=== PATIENT | female | born 1945 | race Caucasian/White ===

== ENCOUNTER 2020-04-09 19:01 | Emergency (ER) | payer MEDICARE ==
[2020-04-09] MEDS ORDERED: Sodium Chloride 0.9% 1,000 ML ONE (19:32)
--- NOTE | 2020-04-09 19:53 | RAD ---
CHEST ONE VIEW: 04/09/20 HISTORY: Dyspnea. COMPARISON: None. FINDINGS: Moderate effusions. Heart size is enlarged. Bibasilar atelectasis. Small nodules right upper lobe may reflect granulomas. IMPRESSION: 1. Cardiomegaly with small to moderate layering pleural effusions. 2. Pulmonary hypertension. 3. Bibasilar atelectasis. 4. Moderate S-shaped scoliosis thoracolumbar junction. POS: HOME
[2020-04-09] MEDS ORDERED: Sodium Chloride 0.9% 100 ML ONE (20:35)
[2020-04-09] MEDS ORDERED: Cefepime 2 GM VIAL ONE (20:35)
[2020-04-09 20:53] LABS: ALT (SGPT) 28 U/L (8-55); AST (SGOT) 63 U/L (5-34); Albumin 1.9 g/dL (3.4-4.8); Alkaline Phosphatase 149 U/L (40-110); Anion Gap 17 mmol/L (10-20); BUN (Urea Nitrogen) 34 mg/dL (9.8-20.1); Bilirubin, Total 1.3 mg/dL (0.2-1.2); CK (CPK) 326 U/L (29-168); Calc. Creatinine Clearance 0 mL/min (70-130); Carbon Dioxide 21 mmol/L (23-31); Chloride 103 mmol/L (98-107); Glucose 71 mg/dL (83-110); Potassium 4.8 mmol/L (3.5-5.1); Protein, Total 4.9 g/dL (6.0-8.3); Sodium 136 mmol/L (136-145)
[2020-04-09 21:04] LABS: Hemoglobin 9.9 g/dL (12.0-16.0); Mean Corpuscular HGB CONC 29.6 g/dL (32.0-36.0); Mean Corpuscular Volume 87.8 fL (78.0-98.0); Platelet Count 165 thou/uL (130-400); RBC Distribution Width 15.7 % (11.5-14.5); Red Blood Cell (RBC) Count 3.81 mill/uL (4.20-5.40); White Blood Cell (WBC) Count 43.7 thou/uL (4.8-10.8)
[2020-04-09 21:15] LABS: CKMB 1.9 ng/mL (0-6.6)
[2020-04-09] MEDS ORDERED: Vancomycin 1.5 GRAM/300 ML BAG ONE (21:21)
[2020-04-09 21:34] LABS: Clarity Hazy (Clear); Leukocyte Negative (Negative); Nitrite Positive (Negative); Protein, Urine (Dipstick) 30 mg/dL (Neg-Trace); Specific Gravity, Urine 1.025 (1.005-1.030)
[2020-04-09 21:35] LABS: Bilirubin Moderate (Negative); Blood, Urine Negative (Negative); Glucose, Urine (Dipstick) Negative (Negative); Ketone, Urine Trace mg/dL (Negative)
[2020-04-09 21:36] LABS: RBC/HPF 0-3 HPF (0-3); WBC/HPF 0-3 HPF (0-3)
[2020-04-09 21:37] LABS: Bacteria/HPF 2+ HPF (None Seen)
--- NOTE | 2020-04-09 21:50 | CT ---
CT Abdomen Pelvis WO Con 04/09/2020 7:32 PM HISTORY: Diarrhea and abdominal pain. Weakness. Elevated creatinine. COMPARISON: None. Technique: Multiple contiguous axial CT images are obtained through the abdomen and pelvis without IV contrast. Coronal reformats are provided. FINDINGS: This examination is limited for the evaluation of solid organs and vascular structures due to the lac k of intravenous contrast. Lower Chest: Small bilateral pleural effusions and associated areas of consolidation are seen in each lung base probably attributable to passive atelectasis. Pneumonia in either lung base would be difficult to exclude. Liver: Diminished attenuation suggesting fatty infiltration. Gallbladder: Surgically absent. Pancreas: Grossly normal nonenhanced CT appearance. Spleen: Grossly normal nonenhanced CT appearance. Adrenals: Grossly normal nonenhanced CT appearance. Kidneys and ureters: A 1.9 cm exophytic hypodense lesion is seen in the posterior aspect midportion l eft kidney. This does demonstrate attenuation coefficient suggestive of a cyst based on nonenhanced CT appearance. No hydronephrosis is present, there are areas of suggested renal cortical thinning. Urinary bladder: Incompletely distended. Reproductive Organs: Evidence of hysterectomy. Lymph Nodes: No enlarged lymph nodes. Bowel: Fluid is seen in the distal esophagus suggesting gastroesophageal reflux. There is suggestion of an irregular mass involving the mid descending colon which may be related to n eoplastic process in this region. The bowel in this region has abnormal irregular appearance. There is a dilated proximal loops of jejunal measuring 4 cm. There are more normal caliber loops of small b owel distal to this region. The exact etiology for the focal small bowel dilatation proximally is uncertain. There is a large defect in the left anterolateral lower quadrant the abdomen with herniation of bowel into the hernia defect including a portion of the colon as well as loops of small bowel. There are postoperative changes involving the sigmoid colon with appears to be anastomosis involving the rectosigmoid junction. Peritoneum: Free intraperitoneal gas is seen in the upper abdomen anterior to the liver and superior to the dome of the liver. Minimal amount of intraperitoneal free fluid is seen, and there is irregular stranding with nodular appearance of the mesentery adjacent to the presumed mass in the mid descending colon. Given free intraperitoneal gas in the abdomen suggest perforated viscus. Retroperitoneum: within normal limits. Vessels: Vascular calcifications are seen in the abdominal aorta and involving the iliac arteries gino ear. Abdominal Wall: A large hernia defect in the left lower quadrant of the abdomen adjacent to the left iliac bone. Bones: Multilevel degenerative changes are seen in the spine. There are wedge-shaped compression frac tures involving the T11 and L1 vertebral bodies with compression deformities involving the superior endplates of the L3 and L4 vertebral bodies. Exact ages of these fractures are indeterminate. S-shape d scoliotic curvature of thoracolumbar spine is present. IMPRESSION: 1. Findings most likely attributable to a mass involving the descending colon with what appears to be adjacent small focal contained perforation in this region. However, there is also free intraperitoneal gas in the upper abdomen which suggests a perforated viscus. Site of perforation coul d be in the region of the presumed colonic mass worrisome for neoplasm involving the mid descending colon. 2. Dilatation of proximal loops of small bowel measuring up to 4 cm. More normal caliber loops of sma ll bowel are seen further distally. The exact transition point is difficult to delineate. Exact etiology for dilated loops of small bowel are uncertain on this exam without GI or IV contrast, findi ngs are worrisome for proximal partial small bowel structure. 3. Large hernia defect left lower quadrant adjacent to the iliac bone with herniation of loops of sma ll bowel and colon through the defect. 4. Small bilateral pleural effusions and associated bibasilar consolidation probably attributable to passive atelectasis. 5. There is reticulonodular appearance of the pericolonic fat in the region of the irregular presumed descending colonic mass which could be related to spread of tumor. 6. Additional findings as above. 7. Above findings discussed with Dr. Rodríguez in the emergency department on 04/09/2020 at 2145 hours .
[2020-04-09 21:52] LABS: Lipase Less than 4 U/L (8-78)
[2020-04-09 23:08] LABS: Band 48 % (5-11); Lymphocytes 3 % (21-51)
[2020-04-09 23:10] LABS: Burr Cells SLIGHT = 2-5 cells (100X) (0-1/hpf); Toxic Granulation SLIGHT
[2020-04-09 23:11] LABS: Platelet Morphology Comment Appears Adequate
[2020-04-09 23:13] LABS: Reflex for Review?? YES
[2020-04-09 23:22] LABS: Neutrophil 49 % (42-75)
[2020-04-10 04:44] LABS: SARS-CoV-2 MS2 Positive; SARS-CoV-2 N Gene Negative; SARS-CoV-2 S Gene Negative; SARS-CoV-2 by NAA Not Detected (NotDetected); SARS-CoV-2 orf1ab Negative
== END 2020-04-09 21:39 | disposition short-term general hospital (02) ==
LOC: MADERS 19:01
DX: A41.9 Sepsis, unspecified organism (principal); R65.20 Severe sepsis without septic shock; J20.9 Acute bronchitis, unspecified; R19.7 Diarrhea, unspecified; R00.0 Tachycardia, unspecified; I10 Essential (primary) hypertension; Z79.899 Other long term (current) drug therapy
CPT/HCPCS: 71045; 74176; 80053; 82550; 82553; 83605; 83690; 84484; 85025; 87040; 87086; 87804 ×2; 93005; 94760; U0003; 36415; 51701; 81003; 81015; 85060; 87635; 96365; 96375; J0692; J3370; J3490; J7050